=== PATIENT | female | born 2000 | race Caucasian/White ===

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

== ENCOUNTER 2023-09-06 17:22 | Outpatient (REF) | payer BC, SELFPAY ==
--- NOTE | 2023-09-06 17:00 | PAPFT_PTH ---
PATIENT: Lois Moore LOC: [facility]#:[id number] AGE/SX: 23/F ROOM: RE09/06/[address]: Shelbie Allison NP : 2000 BED: DIS: 09/06/2023 SPEC #: [id number] RECD: 09/07/23 12:56 STATUS: PJ ARCEO #: [id number] YADIRA: 09/06/23 17:[address]: Shelbie Allison DEPT: [facility] Cytology RECD BY: Tracy Dill Tissues: 1 - CX/ENDOCX FOR PAP SMEARS Procedures: PAP THIN PREP/[facility] Screening Comments: [id number] (CHLAMYDIA/GC)
[2023-09-08 15:23] LABS: Chlamydia Result Negative (Negative); GC Result Negative (Negative)
== END 2023-09-06 17:23 | disposition home or self-care (01) ==
LOC: NCHCN 17:22
PROVIDERS: PCP Nurse Practitioner Family; Visit Provider Nurse Practitioner Family
DX: Z12.4 Encounter for screening for malignant neoplasm of cervix (principal)
CPT/HCPCS: 87491; 87591; 88142; 87624